=== PATIENT | female | born 1930 | race Caucasian/White ===

== ENCOUNTER 2016-10-21 11:10 | Inpatient (IN) | payer MEDICARE, BC ==
[~2016-10-21] VITALS: Ht 162.6 cm; Wt 57.7 kg
[~2016-10-21 11:10] MED LIST: NORCO 5-325 TA1 EACH PO
[2016-10-21 12:52] LABS: BUN/CREATININE RATIO 16 (0-10)
[2016-10-21 12:59] LABS: HEMOGLOBIN 12.5 gm/dl (12.3-15.3); RED BLOOD COUNT 6.69 M/UL (4.00-5.10); WHITE BLOOD COUNT 21.7 K/UL (4.5-11.0)
[2016-10-21 17:36] LABS: HEMOGLOBIN 12.7 gm/dl (12.3-15.3)
[2016-10-21] MEDS ORDERED: TRAMADOL HCL50 MG PO (20:49)
[2016-10-21] MEDS ORDERED: ALPRAZOLAM0.5 MG PO (20:49)
[2016-10-21] MEDS ORDERED: NAMENDA10 MG PO (20:49)
[2016-10-21] MEDS ORDERED: NORVASC 5 MG TAB5 MG PO (20:50)
[2016-10-21] MEDS ORDERED: RAZADYNE ER24 MG PO (20:50)
[2016-10-21] MEDS ORDERED: METOPROLOL SUCC25 MG PO (20:51)
[2016-10-21] MEDS ORDERED: ISORDIL TAB 3030 MG PO (20:51)
[2016-10-21] MEDS ORDERED: PRAVACHOL40 MG PO (20:57)
[2016-10-21] MEDS ORDERED: SEROQUEL25 MG PO (20:57)
[2016-10-21] MEDS ORDERED: PLAVIX 75 MG TA75 MG PO (20:58)
[2016-10-21] MEDS ORDERED: TYLENOL WITH C1 EACH PO (21:00)
[2016-10-22 01:25] LABS: HEMOGLOBIN 11.3 gm/dl (12.3-15.3)
[2016-10-22 05:14] LABS: HEMOGLOBIN 11.5 gm/dl (12.3-15.3); RED BLOOD COUNT 6.22 M/UL (4.00-5.10); WHITE BLOOD COUNT 22.9 K/UL (4.5-11.0)
[2016-10-22 05:31] LABS: BUN/CREATININE RATIO 17 (0-10)
[2016-10-22 09:17] LABS: HEMOGLOBIN 11.9 gm/dl (12.3-15.3)
[2016-10-23 05:34] LABS: HEMOGLOBIN 9.7 gm/dl (12.3-15.3); RED BLOOD COUNT 5.29 M/UL (4.00-5.10); WHITE BLOOD COUNT 21.3 K/UL (4.5-11.0)
[2016-10-23 05:43] LABS: BUN/CREATININE RATIO 16 (0-10)
[2016-10-24 04:04] LABS: BUN/CREATININE RATIO 19 (0-10)
[2016-10-24 04:13] LABS: HEMOGLOBIN 9.9 gm/dl (12.3-15.3); RED BLOOD COUNT 5.39 M/UL (4.00-5.10); WHITE BLOOD COUNT 21.4 K/UL (4.5-11.0)
== END 2016-10-24 11:46 | disposition home health service (06) | DRG 378 ==
LOC: ER1 11:10 → PROG CARE 17:08 → ZEROF 17:08 → PROG CARE 20:58
PROVIDERS: Emergency Medicine; Family Medicine; Internal Medicine Gastroenterology; ADMIT Internal Medicine
PROC: 0DJD8ZZ Inspection of Lower Intestinal Tract, Via Natural or Artificial Opening Endoscopic (ICD-10-PCS; principal; 2016-10-23 08:46)
DX: K57.31 Diverticulosis of large intestine without perforation or abscess with bleeding (principal); D62 Acute posthemorrhagic anemia; C94.6 Myelodysplastic disease, not elsewhere classified; I10 Essential (primary) hypertension; G30.9 Alzheimer's disease, unspecified; F02.80 Dementia in other diseases classified elsewhere, unspecified severity, without behavioral disturbance, psychotic disturbance, mood disturbance, and anxiety; D47.3 Essential (hemorrhagic) thrombocythemia; D45 Polycythemia vera; E78.00 Pure hypercholesterolemia, unspecified; K64.8 Other hemorrhoids; I25.10 Atherosclerotic heart disease of native coronary artery without angina pectoris; J44.9 Chronic obstructive pulmonary disease, unspecified; Z85.3 Personal history of malignant neoplasm of breast; Z79.02 Long term (current) use of antithrombotics/antiplatelets; Z92.3 Personal history of irradiation; Z87.891 Personal history of nicotine dependence; Z79.899 Other long term (current) drug therapy
CPT/HCPCS: 36415; 80048; 80053; 82550; 82553; 83605; 84132; 84484; 85014; 85018; 85025; 85027; 85610; 85730; 86850; 86900; 86901; 86920; 93005; 96360; 99285; J2250; J3010; J7030; J7040; J7050; Q9962

== ENCOUNTER → 2016-11-21 | Outpatient (CLI) | payer MEDICARE, BC ==
[~2016-11-21] MED LIST changes: +ALPRAZOLAM0.5 MG PO; +ISORDIL TAB 3030 MG PO; +METOPROLOL SUCC25 MG PO; +NAMENDA10 MG PO; +NORVASC 5 MG TAB5 MG PO; +PLAVIX 75 MG TA75 MG PO; +PRAVACHOL40 MG PO; +RAZADYNE ER24 MG PO; +SEROQUEL25 MG PO; +TRAMADOL HCL50 MG PO; +TYLENOL WITH C1 EACH PO
== END ==
LOC: RAD 14:51
DX: M54.6 Pain in thoracic spine (principal); M85.88 Other specified disorders of bone density and structure, other site; M47.814 Spondylosis without myelopathy or radiculopathy, thoracic region
CPT/HCPCS: 72070